=== PATIENT | female | born 1960 | race Caucasian/White ===

== ENCOUNTER 2024-07-09 14:26 | Inpatient (IN) | payer MEDICAID ==
[~2024-07-09] VITALS: Ht 167.6 cm
[2024-07-09 14:36] VITALS: O2SAT 99
[2024-07-09] MEDS: CEFTRIAXONE 1GM/50ML 50 ML IV ONE (17:18)
[2024-07-09] MEDS: SODIUM CHLORIDE 0.9% 1000ML BAG (SEPSIS BOLUS) IV ONE (17:18)
[2024-07-09 17:56] LABS: HEMATOCRIT. 31.4 % (36.0-48.0); HEMOGLOBIN. 10.3 g/dL (12.0-16.0); MEAN CORPUSCULAR HEMOGLOBIN 32.7 pg (28.0-32.0); MEAN CORPUSCULAR HGB CONC 32.8 g/dL (31.0-37.0); MEAN CORPUSCULAR VOLUME 99.8 fL (81.0-99.0); MEAN PLATELET VOLUME 7.6 fl (7.4-10.4); PLATELET 125 x1000/uL (130-400); RED BLOOD CELL COUNT 3.15 mill/uL (4.2-5.4); RED CELL DISTRIBUTION WIDTH 13.9 % (11.6-14.6); WHITE BLOOD COUNT 10.1 x1000/uL (4.5-11.0)
[2024-07-09 17:57] LABS: DIFFERENTIAL COMMENT 1
[2024-07-09 17:59] LABS: POTASSIUM 4.5 mEq/L (3.5-5.1)
[2024-07-09 18:00] LABS: CALCIUM 9.3 mg/dL (8.7-10.4)
[2024-07-09 18:07] LABS: LACTIC ACID 3.1 mmol/L (0.4-2.0); TROPONIN I HIGH SENSITIVITY 22 ng/L (3.0-34)
[2024-07-09 20:55] LABS: TROPONIN I HIGH SENSITIVITY 25 ng/L (3.0-34)
[2024-07-09 21:02] LABS: ANISOCYTOSIS 1+; PLATELET ESTIMATE SLIGHTLY DECREASED
[2024-07-09] MEDS ORDERED: DOCUSATE SODIUM 100MG CAPSULE PO PRN (22:15)
[2024-07-09] MEDS ORDERED: IPRATROPIUM/ALBUTEROL 0.5-3(2.5)MG/3ML NEB HHN PRN (22:15)
[2024-07-09] MEDS ORDERED: GUAIFENESIN 200MG/10ML SUGAR FREE UDC PO PRN (22:15)
[2024-07-09] MEDS ORDERED: MAGNESIUM/ALUMINUM HYDROXIDE/SIMETHICONE 30ML UDC PO PRN (22:15)
[2024-07-09] MEDS ORDERED: ACETAMINOPHEN 325MG TABLET PO PRN (22:15)
[2024-07-10] VITALS (10 sets, daily range): BP systolic 89–175; BP diastolic 40–88; PULSE 74–104; RESP 17–20; TEMP 36.28068–36.9184; O2SAT 95–100
[2024-07-10] MEDS: PIPERACILLIN/TAZO 3.375G/50ML IV NR (00:45)
[2024-07-10 01:03] LABS: CLARITY URINE CLEAR (CLEAR); COLOR URINE YELLOW (YELLOW); GLUCOSE URINE NEGATIVE (NEGATIVE); KETONES URINE NEGATIVE (NEGATIVE); LEUKOCYTE ESTERASE URINE NEGATIVE (NEGATIVE); NITRITE URINE NEGATIVE (NEGATIVE); OCCULT BLOOD URINE 3+ (NEGATIVE); PROTEIN URINE 3+ (NEGATIVE); SPECIFIC GRAVITY URINE 1.013 (1.005-1.030)
[2024-07-10] MEDS: VANCOMYCIN 1.5GM/250ML IV NR (01:29)
[2024-07-10] MEDS: ONDANSETRON HCL 4MG/2ML INJ IV PRN (03:55)
[2024-07-10 04:13] LABS: SQUAMOUS EPITHELIAL CELL URINE FEW /lpf (RARE/1+)
[2024-07-10 04:14] LABS: RBC URINE 50-100 /hpf (0-2); WBC URINE 0-2 /hpf (0-2)
[2024-07-10 04:15] LABS: BACTERIA URINE TRACE
[2024-07-10] MEDS: CLONIDINE 0.1MG TABLET PO PRN (05:13)
[2024-07-10] MEDS ORDERED: NIFE-127 PO (07:51)
[2024-07-10] MEDS ORDERED: LABE100T9 PO (07:51)
[2024-07-10] MEDS ORDERED: LEVO88TA7 PO (07:51)
[2024-07-10] MEDS ORDERED: HYDR25TA78 PO (07:54)
[2024-07-10] MEDS ORDERED: SUCR500T PO (07:54)
[2024-07-10] MEDS ORDERED: DEXTROSE 50% WATER 50ML SYRINGE IV PRN (08:00)
[2024-07-10] MEDS: LABETALOL HCL 100MG TABLET PO SCH (09:00)
[2024-07-10] MEDS: NIFEDIPINE XL 60MG TAB PO SCH (09:45)
[2024-07-10] MEDS: ENOXAPARIN 30MG/0.3ML SYR SUBCUT SCH (09:45)
[2024-07-10] MEDS: LEVOTHYROXINE SODIUM 88MCG TABLET PO SCH (09:45)
[2024-07-10] MEDS: HYDRALAZINE HCL 25MG TABLET PO SCH (09:46)
[2024-07-10] MEDS: PIPERACILLIN/TAZO 3.375G/50ML 50 ML IV SCH (11:08)
[2024-07-10] MEDS: BLOOD SUGAR DIAGNOSTIC STRIP TEST SCH (11:40)
[2024-07-10] MEDS: CEFTRIAXONE SODIUM 1G VIAL IM NR (12:30)
[2024-07-10 13:05] LABS: CHLORIDE 101 mEq/L (98-107); POTASSIUM 3.8 mEq/L (3.5-5.1); SODIUM 131 mEq/L (136-145)
[2024-07-10 13:06] LABS: CALCIUM 8.9 mg/dL (8.7-10.4); CARBON DIOXIDE 19 mEq/L (21-32)
[2024-07-10 13:06] LABS: HEMATOCRIT. 26.9 % (36.0-48.0); HEMOGLOBIN. 9.2 g/dL (12.0-16.0); MEAN CORPUSCULAR HEMOGLOBIN 32.8 pg (28.0-32.0); MEAN CORPUSCULAR HGB CONC 34.2 g/dL (31.0-37.0); MEAN CORPUSCULAR VOLUME 95.8 fL (81.0-99.0); MEAN PLATELET VOLUME 8.4 fl (7.4-10.4); PLATELET 128 x1000/uL (130-400); RED BLOOD CELL COUNT 2.81 mill/uL (4.2-5.4); RED CELL DISTRIBUTION WIDTH 13.6 % (11.6-14.6); WHITE BLOOD COUNT 10.3 x1000/uL (4.5-11.0)
[2024-07-10 13:09] LABS: DIFFERENTIAL COMMENT 1
[2024-07-10 13:11] LABS: GLUCOSE 129 mg/dL (70-105); IRON 15 ug/dL (50-170); TRIGLYCERIDE 208 mg/dL (0-150); UREA NITROGEN BLOOD 46 mg/dL (9-23)
[2024-07-10 13:12] LABS: LDL CHOLESTEROL 75 mg/dL (5-100)
[2024-07-10 13:13] LABS: CHOLESTEROL 148 mg/dL (<200); HDL CHOLESTEROL 32 mg/dL (>65); PHOSPHORUS 2.2 mg/dL (2.5-4.9); TOTAL IRON BINDING CAPACITY 398 ug/dl (250-425)
[2024-07-10 13:17] LABS: T4 FREE 1.07 ng/dL (0.89-1.76)
[2024-07-10 13:18] LABS: THYROID STIMULATING HORMONE 3.31 uIU/mL (0.55-4.78)
[2024-07-10 13:28] LABS: HEPATITIS B SURFACE ANTIGEN NEGATIVE (Negative)
[2024-07-10 13:49] LABS: HEPATITIS A AB IGM NEGATIVE (Negative)
[2024-07-10 13:50] LABS: HEPATITIS B CORE AB IGM NEGATIVE (Negative); HEPATITIS C AB NON REACTIVE (Neg) (Negative)
[2024-07-10 14:46] LABS: PLATELET ESTIMATE NORMAL
[2024-07-10 17:02] LABS: PROTHROMBIN TIME 10.8 sec (9.6-11.0)
[2024-07-10] MEDS: FAMOTIDINE 20MG TABLET PO SCH (20:53)
[2024-07-10] MEDS: SODIUM PHOSPHATE 10 MMOL in DEXT 5% WATER 246.6667 ML IV NR (23:00)
[2024-07-11] VITALS: BP 91/43; PULSE 77; RESP 19; TEMP 36.72516; O2SAT 100
[2024-07-11 04:00] VITALS: BP 119/54; PULSE 70; RESP 19; TEMP 36.72516; O2SAT 98
[2024-07-11] MEDS: LEVOTHYROXINE SODIUM 88MCG TABLET PO SCH (05:53)
[2024-07-11 06:40] LABS: CALCIUM 8.8 mg/dL (8.7-10.4); CARBON DIOXIDE 24 mEq/L (21-32); CHLORIDE 101 mEq/L (98-107); POTASSIUM 3.2 mEq/L (3.5-5.1); SODIUM 133 mEq/L (136-145)
[2024-07-11 06:46] LABS: CREATININE 4.4 mg/dL (0.6-1.0); GLUCOSE 107 mg/dL (70-105); UREA NITROGEN BLOOD 39 mg/dL (9-23)
[2024-07-11] MEDS ORDERED: LIDOCAINE HCL 1% 10 MG/ML 10ML VIAL ONE (07:20)
[2024-07-11 08:00] VITALS: BP 110/59; PULSE 72; RESP 18; TEMP 36.05844; O2SAT 96
[2024-07-11 08:11] LABS: HEMATOCRIT. 26.4 % (36.0-48.0); HEMOGLOBIN. 8.9 g/dL (12.0-16.0); MEAN CORPUSCULAR HEMOGLOBIN 32.4 pg (28.0-32.0); MEAN CORPUSCULAR HGB CONC 33.6 g/dL (31.0-37.0); MEAN CORPUSCULAR VOLUME 96.4 fL (81.0-99.0); MEAN PLATELET VOLUME 9.2 fl (7.4-10.4); PLATELET 101 x1000/uL (130-400); RED BLOOD CELL COUNT 2.74 mill/uL (4.2-5.4); RED CELL DISTRIBUTION WIDTH 13.4 % (11.6-14.6); WHITE BLOOD COUNT 7.8 x1000/uL (4.5-11.0)
[2024-07-11 08:30] LABS: DIFFERENTIAL COMMENT 1
[2024-07-11] MEDS: POTASSIUM CHLORIDE 20MEQ TABLET SR PO SCH (08:56)
[2024-07-11 12:00] VITALS: BP 116/41; PULSE 106; RESP 18; TEMP 36.50292; O2SAT 98
[2024-07-11] MEDS: VANCOMYCIN 1GM/200ML PMX (BAXTER) IV NR (12:06)
[2024-07-11] MEDS: SODIUM CHLORIDE 0.9% 1,000 ML IV ONE (15:13)
[2024-07-11 15:49] VITALS: BP 144/72; PULSE 105; RESP 18; TEMP 36.78072; O2SAT 96
[2024-07-11 19:29] LABS: PLATELET ESTIMATE NORMAL
[2024-07-11 20:00] VITALS: BP_SYST 105; BP_SYST 130; BP_DIAS 59; BP_DIAS 62; PULSE 80; PULSE 83; RESP 19; RESP 20; TEMP 36.61404; TEMP 36.72516; O2SAT 100; O2SAT 97
[2024-07-12] VITALS: BP 109/53; PULSE 72; RESP 18; TEMP 36.72516
[2024-07-12 04:00] VITALS: BP 137/66; PULSE 71; RESP 18; TEMP 36.61404; O2SAT 98
[2024-07-12 06:42] LABS: POTASSIUM 3.5 mEq/L (3.5-5.1)
[2024-07-12 06:43] LABS: CALCIUM 8.6 mg/dL (8.7-10.4)
[2024-07-12 06:48] LABS: CREATININE 4.7 mg/dL (0.6-1.0)
[2024-07-12 06:51] LABS: HEMOGLOBIN. 8.3 g/dL (12.0-16.0); MEAN CORPUSCULAR HEMOGLOBIN 32.5 pg (28.0-32.0); MEAN CORPUSCULAR HGB CONC 34.6 g/dL (31.0-37.0); MEAN PLATELET VOLUME 8.7 fl (7.4-10.4); PLATELET 110 x1000/uL (130-400); RED BLOOD CELL COUNT 2.56 mill/uL (4.2-5.4); RED CELL DISTRIBUTION WIDTH 13.6 % (11.6-14.6); WHITE BLOOD COUNT 7.7 x1000/uL (4.5-11.0)
[2024-07-12 07:06] LABS: DIFFERENTIAL COMMENT 1
[2024-07-12 08:00] VITALS: BP 139/72; PULSE 73; RESP 20; TEMP 36.78072; O2SAT 96
[2024-07-12] MEDS: POTASSIUM CHLORIDE 20MEQ TABLET SR PO NR (10:25)
[2024-07-12 12:00] VITALS: BP 151/84; PULSE 78; RESP 20; TEMP 36.44736; O2SAT 98
[2024-07-12 15:12] LABS: PLATELET ESTIMATE NORMAL
[2024-07-12 16:00] VITALS: BP 147/82; PULSE 69; RESP 19; TEMP 36.44736; O2SAT 98
[2024-07-12] MEDS: FERROUS SULFATE 325MG TABLET PO SCH (17:15)
[2024-07-12 20:00] VITALS: BP 160/83; PULSE 74; RESP 20; TEMP 36.72516; O2SAT 100
[2024-07-12] MEDS: CEFTRIAXONE 2GM/50ML 50ML IV SCH (21:57)
[2024-07-13] VITALS (16 sets, daily range): BP systolic 130–198; BP diastolic 58–97; PULSE 80–102; RESP 12–19; TEMP 36.16956–37.89192; O2SAT 2–100
[2024-07-13] MEDS: HYDRALAZINE 20MG/ML VIAL IV PRN (04:47)
[2024-07-13] MEDS: ACETAMINOPHEN 325MG TABLET PO PRN (05:32)
[2024-07-13] MEDS: DOXAZOSIN MESYLATE 2MG TABLET PO SCH (05:32)
[2024-07-13] MEDS: HYDRALAZINE HCL 25MG TABLET PO SCH (08:46)
[2024-07-13] MEDS ORDERED: HEPARIN 1000 UNITS/ML 10ML ONE (08:58)
[2024-07-13] MEDS ORDERED: LIDOCAINE HCL 1% 10 MG/ML 10ML VIAL ONE (08:58)
[2024-07-13 09:15] LABS: POTASSIUM 3.9 mEq/L (3.5-5.1)
[2024-07-13 09:16] LABS: CALCIUM 8.7 mg/dL (8.7-10.4)
[2024-07-13 09:21] LABS: CREATININE 4.8 mg/dL (0.6-1.0)
[2024-07-13] MEDS ORDERED: FENTANYL CITRATE/PF 50MCG/ML 2ML VIAL ONE (09:30)
[2024-07-13] MEDS: FENTANYL CITRATE/PF 50MCG/ML 2ML VIAL IV NR (09:30)
[2024-07-14] VITALS (13 sets, daily range): BP systolic 129–172; BP diastolic 59–86; PULSE 69–109; RESP 16–19; TEMP 36.28068–36.9474; O2SAT 97–100
== END 2024-07-14 14:40 | disposition home or self-care (01) | DRG 721 ==
LOC: ER 14:26 → EDBEDREQ 20:45 → EDBEDREQTM 20:45 → 5WST 20:45 → 7EST 07-10 02:58
PROVIDERS: ADMIT Hospitalist; ATTEND Hospitalist
PROC: 0JPT0XZ Removal of Tunneled Vascular Access Device from Trunk Subcutaneous Tissue and Fascia, Open Approach (ICD-10-PCS; 2024-07-11)
PROC: 0JH63XZ Insertion of Tunneled Vascular Access Device into Chest Subcutaneous Tissue and Fascia, Percutaneous Approach (ICD-10-PCS; principal; 2024-07-13)
PROC: 02H633Z Insertion of Infusion Device into Right Atrium, Percutaneous Approach (ICD-10-PCS; 2024-07-13)
PROC: B548ZZA Ultrasonography of Superior Vena Cava, Guidance (ICD-10-PCS; 2024-07-13)
PROC: B5181ZA Fluoroscopy of Superior Vena Cava using Low Osmolar Contrast, Guidance (ICD-10-PCS; 2024-07-13)
DX: T80.211A Bloodstream infection due to central venous catheter, initial encounter (principal); A41.50 Gram-negative sepsis, unspecified; N17.9 Acute kidney failure, unspecified; R65.20 Severe sepsis without septic shock; N18.6 End stage renal disease; E87.1 Hypo-osmolality and hyponatremia; E83.39 Other disorders of phosphorus metabolism; D53.9 Nutritional anemia, unspecified; T85.71XA Infection and inflammatory reaction due to peritoneal dialysis catheter, initial encounter; E83.42 Hypomagnesemia; Z20.822 Contact with and (suspected) exposure to COVID-19; R51.9 Headache, unspecified; Y83.8 Other surgical procedures as the cause of abnormal reaction of the patient, or of later complication, without mention of misadventure at the time of the procedure; E03.9 Hypothyroidism, unspecified; Z99.2 Dependence on renal dialysis; Y92.89 Other specified places as the place of occurrence of the external cause
CPT/HCPCS: 36415; 36558; 36589; 71045; 76937; 77001; 80048; 80061; 80202; 81003; 82728; 82962; 83540; 83550; 83605; 83735; 84100; 84145; 84439; 84443; 84484; 85025; 86705; 86709; 87070; 87077; 87186; 87340; 87426; 90935; 93005; 99152; 99153; 99291; C1750; C1893; J0360; J0696; J1644; J1650; J2405; J2543; J3010; J3370; J3490; J7030; J7060; G0500